=== PATIENT | female | born 1990 | race Two or more races ===

== ENCOUNTER → 2019-04-21 | Outpatient (CLI) | payer OTHER | END | disposition home or self-care (01) | LOC: PRENATAL 10:22 | DX: O35.3XX0 Maternal care for (suspected) damage to fetus from viral disease in mother, not applicable or unspecified (principal) ==

== ENCOUNTER 2019-06-28 15:30 | Inpatient (IN) | payer OTHER ==
[~2019-06-28] VITALS: Ht 152.4 cm; Wt 2.7 kg
[2019-07-10] MEDS ORDERED: PRENATAL TABLE1 EAC1 PO (09:02)
== END 2019-07-13 17:35 | disposition home or self-care (01) | DRG 788 ==
LOC: LDR 07-10 06:25 → O/R 07-10 15:30 → LDR 07-10 15:30 → O/R 07-10 23:18 → OB/GYN 07-10 23:32
PROVIDERS: ADMIT Specialist
PROC: 3E0P7VZ Introduction of Hormone into Female Reproductive, Via Natural or Artificial Opening (ICD-10-PCS; 2019-07-10)
PROC: 3E033VJ Introduction of Other Hormone into Peripheral Vein, Percutaneous Approach (ICD-10-PCS; 2019-07-10)
PROC: 4A1HXCZ Monitoring of Products of Conception, Cardiac Rate, External Approach (ICD-10-PCS; 2019-07-10)
PROC: 10D00Z1 Extraction of Products of Conception, Low, Open Approach (ICD-10-PCS; principal; 2019-07-10 20:00)
DX: O82 Encounter for cesarean delivery without indication (principal); O64.8XX0 Obstructed labor due to other malposition and malpresentation, not applicable or unspecified; Z3A.40 40 weeks gestation of pregnancy; Z37.0 Single live birth